=== PATIENT | female | born 1940 | race Caucasian/White ===

== ENCOUNTER 2017-06-29 08:59 | Outpatient (CLI) | payer BC | END 2017-06-29 09:00 | disposition home or self-care (01) | LOC: BICMAMMO 08:59 | PROVIDERS: ATTEND Internal Medicine | DX: Z12.31 Encounter for screening mammogram for malignant neoplasm of breast (principal) | CPT/HCPCS: 77067; G0202 ==

== ENCOUNTER 2018-04-28 14:30 | Outpatient (CLI) | payer BC ==
--- NOTE | 2018-04-28 16:46 | RAD ---
FOUR VIEWS LUMBAR SPINE INCLUDING AP, LATERAL, FLEXION AND EXTENSION VIEWS LUMBAR SPINE: 04/28/18 HISTORY: Low back pain. AP, lateral as well as flexion and extension views lumbar spine demonstrate five nonribbearing lumbar vertebrae. There is grade I anterolisthesis of L4 on L5. Minimal anterolisthesis of L5 on S1 also se en. This is not significantly changed on flexion or extension views. Findings likely due to facet instabi lity. IMPRESSION: L4 on L5 and L5 on S1 anterolisthesis. This does not significantly change on flexion or extension bob sargent. POS: [facility]
== END 2018-04-28 14:31 | disposition home or self-care (01) ==
LOC: TBSIIMAG 14:30
PROVIDERS: ATTEND Surgery
DX: M54.16 Radiculopathy, lumbar region (principal); M43.16 Spondylolisthesis, lumbar region; M43.17 Spondylolisthesis, lumbosacral region
CPT/HCPCS: 72110

== ENCOUNTER 2018-07-01 08:37 | Outpatient (CLI) | payer BC | END 2018-07-01 08:38 | disposition home or self-care (01) | LOC: BICMAMMO 08:37 | PROVIDERS: ATTEND Internal Medicine | DX: Z12.31 Encounter for screening mammogram for malignant neoplasm of breast (principal); Z85.820 Personal history of malignant melanoma of skin | CPT/HCPCS: 77063; 77067 ==

== ENCOUNTER 2019-07-06 09:45 | Outpatient (CLI) | payer BC ==
--- NOTE | 2019-07-06 10:52 | MMO ---
Bilateral MAMMO Bilat Screen [facility]. CLINICAL HISTORY: Patient is 78 years old and is seen for screening. The patient has no family history of breast cancer. The patient has no personal history of cancer. The patient has a history of right Excisional Biopsy in ? - benign. VIEWS: The views performed were: bilateral craniocaudal with tomosynthesis and bilateral mediolateral oblique with tomosynthesis. FILMS COMPARED: The present examination has been compared to prior imaging studies performed at [facility] on 06/29/2017 and 07/01/2018, and at [facility] on 06/26/2015 and 06/24/2016. This study has been interpreted with the assistance of computer-aided detection. MAMMOGRAM FINDINGS: There are scattered fibroglandular densities. Finding 1: There are benign appearing calcifications seen in both breasts. Finding 2: There are benign scattered densities in both breasts. There are no suspicious masses, suspicious calcifications, or new areas of architectural distortion. IMPRESSION: THERE IS NO MAMMOGRAPHIC EVIDENCE OF MALIGNANCY. A ROUTINE FOLLOW-UP MAMMOGRAM IN 1 YEAR IS RECOMMENDED. THE RESULTS OF THIS EXAM WERE SENT TO THE PATIENT. ACR BI-RADS Category 2 - Benign finding MAMMOGRAPHY NOTE: 1. A negative mammogram report should not delay a biopsy if a dominant of clinically suspicious mass is present. 2. Approximately 10% to 15% of breast cancers are not detected by mammography. 3. Adenosis and dense breasts may obscure an underlying neoplasm. Reported by: JUAN HARRISON MD Electonically Signed: [id number]
--- NOTE | 2019-07-06 12:13 | BD ---
BONE DENSITOMETRY USING DEXA: Date: 07/06/19 HISTORY: Postmenopausal screening for osteoporosis. FINDINGS: Lumbar Spine: BMD (g/cm2) L1 1.120 T-Score: 1.2 Z-Score: 3.5 L2 1.108 T-Score: 0.7 Z-Score: 3.3 L3 1.089 T-Score: 0.0 Z-Score: 2.8 L4 1.085 T-Score: 0.2 Z-Score: 3.0 L1-L4 1.100 T-Score: 0.5 Z-Score: 3.1 Femoral Neck: 0.787 T-Score: 0.7 Z-Score: 1.7 Total Femur: 0.995 T-Score: 0.4 Z-Score: 2.4 IMPRESSION: No evidence of osteopenia/osteoporosis. POS: [facility]
== END 2019-07-06 09:46 | disposition home or self-care (01) ==
LOC: BICMAMMO 09:45
PROVIDERS: ATTEND Obstetrics & Gynecology
DX: Z12.31 Encounter for screening mammogram for malignant neoplasm of breast (principal); Z13.820 Encounter for screening for osteoporosis; M81.0 Age-related osteoporosis without current pathological fracture; M85.80 Other specified disorders of bone density and structure, unspecified site
CPT/HCPCS: 77063; 77067; 77080

== ENCOUNTER 2020-07-10 10:56 | Outpatient (CLI) | payer BC ==
--- NOTE | 2020-07-10 15:31 | MMO ---
Bilateral MAMMO Bilat Screen [facility]. CLINICAL HISTORY: Patient is 79 years old and is seen for screening. The patient has no family history of breast cancer. The patient has a history of Skin cancer. The patient has a history of right Excisional Biopsy in ? - benign. VIEWS: The views performed were: bilateral craniocaudal with tomosynthesis and bilateral mediolateral oblique with tomosynthesis. FILMS COMPARED: The present examination has been compared to prior imaging studies performed at [facility] on 06/29/2017, 07/01/2018 and 07/06/2019, and at [facility] on 06/24/2016. This study has been interpreted with the assistance of computer-aided detection. MAMMOGRAM FINDINGS: There are scattered fibroglandular densities. Benign calcifications are noted bilaterally. There are no suspicious masses, suspicious calcifications, or new areas of architectural distortion. IMPRESSION: THERE IS NO MAMMOGRAPHIC EVIDENCE OF MALIGNANCY. A ROUTINE FOLLOW-UP MAMMOGRAM IN 1 YEAR IS RECOMMENDED. THE RESULTS OF THIS EXAM WERE SENT TO THE PATIENT. ACR BI-RADS Category 2 - Benign finding MAMMOGRAPHY NOTE: 1. A negative mammogram report should not delay a biopsy if a dominant of clinically suspicious mass is present. 2. Approximately 10% to 15% of breast cancers are not detected by mammography. 3. Adenosis and dense breasts may obscure an underlying neoplasm. Reported by: KELSEA WALLS MD Electonically Signed: [id number]
== END 2020-07-10 10:57 | disposition home or self-care (01) ==
LOC: BICMAMMO 10:56
PROVIDERS: ATTEND Internal Medicine
DX: Z12.31 Encounter for screening mammogram for malignant neoplasm of breast (principal); Z85.828 Personal history of other malignant neoplasm of skin; Z91.89 Other specified personal risk factors, not elsewhere classified
CPT/HCPCS: 77063; 77067

== ENCOUNTER 2021-07-11 09:52 | Outpatient (CLI) | payer MEDICARE, BC | END 2021-07-11 09:53 | disposition home or self-care (01) | LOC: BICMAMMO 09:52 | PROVIDERS: ATTEND Obstetrics & Gynecology | DX: Z12.31 Encounter for screening mammogram for malignant neoplasm of breast (principal); Z85.828 Personal history of other malignant neoplasm of skin | CPT/HCPCS: 77063; 77067 ==

== ENCOUNTER 2022-08-25 09:36 | Outpatient (CLI) | payer MEDICARE, BC | END 2022-08-25 09:37 | disposition home or self-care (01) | LOC: BICMAMMO 09:36 | PROVIDERS: ATTEND Obstetrics & Gynecology | DX: Z12.31 Encounter for screening mammogram for malignant neoplasm of breast (principal); Z13.820 Encounter for screening for osteoporosis; R92.1 Mammographic calcification found on diagnostic imaging of breast; Z79.890 Hormone replacement therapy; Z91.89 Other specified personal risk factors, not elsewhere classified; Z85.828 Personal history of other malignant neoplasm of skin; Z78.0 Asymptomatic menopausal state | CPT/HCPCS: 77063; 77067; 77080 ==

== ENCOUNTER 2023-08-26 10:59 | Outpatient (CLI) | payer MEDICARE, BC | END 2023-08-26 11:00 | disposition home or self-care (01) | LOC: BICMAMMO 10:59 | PROVIDERS: ATTEND Internal Medicine | DX: Z12.31 Encounter for screening mammogram for malignant neoplasm of breast (principal); Z85.828 Personal history of other malignant neoplasm of skin | CPT/HCPCS: 77063; 77067 ==

== ENCOUNTER 2024-09-06 12:20 | Outpatient (CLI) | payer MEDICARE, BC | END 2024-09-06 12:21 | disposition home or self-care (01) | LOC: BICMAMMO 12:20 | PROVIDERS: ATTEND Internal Medicine | DX: Z12.31 Encounter for screening mammogram for malignant neoplasm of breast (principal); Z85.828 Personal history of other malignant neoplasm of skin | CPT/HCPCS: 77063; 77067 ==